=== PATIENT | male | born 1995 | race Caucasian/White ===

== ENCOUNTER 2020-10-04 16:04 | Emergency (ER) | payer OTHER ==
[2020-10-04 16:14] VITALS: BP 124/86; PULSE 93; TEMP 98.2; BMI 25.0
[2020-10-04] MEDS ORDERED: KETOROLAC TROMETHAMINE 30 MG/1 ML VIAL IM ONE (16:48)
[2020-10-04] MEDS ORDERED: METHOCARBAMOL 750 MG TABLET PO ONE (16:50)
[2020-10-04] MEDS ORDERED: LIDOCAINE 5% TOPICAL PATCH TP ONE (16:50)
[2020-10-04] MEDS ORDERED: LIDOCAINE 5% TOPICAL PATCH ONE (16:55)
[2020-10-04] MEDS ORDERED: KETOROLAC TROMETHAMINE 30 MG/1 ML VIAL ONE (16:55)
[2020-10-04] MEDS ORDERED: METHOCARBAMOL 500 MG TABLET ONE (16:55)
[2020-10-04] MEDS ORDERED: LIDOCAINE PATCH REMOVAL MC SCH (22:00)
== END 2020-10-04 18:36 | disposition home or self-care (01) ==
LOC: JER 16:04
PROC: 3E0233Z Introduction of Anti-inflammatory into Muscle, Percutaneous Approach (ICD-10-PCS; principal; 2020-10-04)
DX: M54.5 Low back pain (principal)
CPT/HCPCS: 72128-TC; 72131-TC; 99284-25